=== PATIENT | female | born 1950 | race Caucasian/White ===

== ENCOUNTER 2021-05-11 09:41 | Inpatient (IN) ==
[2021-05-13] MEDS ORDERED: traZODone 50 MG TABLET PO PRN (13:51)
[2021-05-13] MEDS: Cholecalciferol (D-3) 1,000 UNIT (25MCG) TABLET PO SCH (23:23)
[2021-05-13] MEDS: Melatonin 3 MG TABLET PO SCH (23:23)
[2021-05-13] MEDS: Gabapentin 300 MG CAPSULE PO SCH (23:24)
[2021-05-13] MEDS: lisinopriL 10 MG TABLET PO SCH (23:24)
[2021-05-14 07:02] LABS: Basophils # 0.1 K/mcL (0.0-0.2); Basophils % 0.9 %; Eosinophils # 0.1 K/mcL (0.0-0.6); Eosinophils % 1.9 %; Hematocrit 44.5 % (35.3-44.9); Hemoglobin 14.3 g/dL (11.5-15.4); Immature Granulocytes % 1.4 % (0-4); Lymphocytes # 1.7 K/mcL (0.6-4.6); Lymphocytes % 29.8 %; Mean Corpuscular HGB Conc 32.1 g/dL (31.6-35.5); Mean Corpuscular Hemoglobin 31.1 pg (28.0-33.3); Mean Corpuscular Volume 96.7 fL (83.0-100.0); Mean Platelet Volume 9.9 fL (9.4-12.4); Monocytes # 0.6 K/mcL (0.0-1.3); Monocytes % 10.8 %; Neutrophils # 3.1 K/mcL (1.6-8.9); Platelet Count 373 K/mcL (140-400); Red Cell Distribution Width 16.3 % (11.5-14.5); Segmented Neutrophils % 55.2 %; White Blood Count 5.7 K/mcL (4.3-11.1)
[2021-05-14 07:24] LABS: BUN/Creatinine Ratio 21 (6-26); Blood Urea Nitrogen 14 mg/dL (8-23); Calcium 10.2 mg/dL (8.6-10.3); Carbon Dioxide 25 mEq/L (23-29); Chloride 101 mEq/L (98-107); Glucose 85 mg/dL (70-105); Osmolality,Calculated 282 (280-300); Potassium 4.2 mEq/L (3.5-5.1); Sodium 136 mEq/L (136-145); eGFR For African Americans > 60 (> 60); eGFR For Non-African Americans > 60 (> 60)
[2021-05-14] MEDS: VILANTEROL TR IH SCH (17:44)
[2021-05-14] MEDS: UMECLIDINIUM BRM IH SCH (17:44)
[2021-05-14] MEDS: lisinopriL 10 MG TABLET PO SCH (22:52)
[2021-05-14] MEDS: Gabapentin 300 MG CAPSULE PO SCH (22:52)
[2021-05-14] MEDS: Cholecalciferol (D-3) 1,000 UNIT (25MCG) TABLET PO SCH (22:52)
[2021-05-14] MEDS: Melatonin 3 MG TABLET PO SCH (22:52)
[2021-05-15 06:48] LABS: BUN/Creatinine Ratio 24 (6-26); Blood Urea Nitrogen 21 mg/dL (8-23); Calcium 10.5 mg/dL (8.6-10.3); Carbon Dioxide 30 mEq/L (23-29); Chloride 100 mEq/L (98-107); Glucose 90 mg/dL (70-105); Magnesium 2.3 mg/dL (1.6-2.6); Osmolality,Calculated 291 (280-300); Potassium 3.8 mEq/L (3.5-5.1); Sodium 139 mEq/L (136-145); eGFR For African Americans > 60 (> 60); eGFR For Non-African Americans > 60 (> 60)
[2021-05-15] MEDS: VILANTEROL TR IH SCH (11:23)
[2021-05-15] MEDS: UMECLIDINIUM BRM IH SCH (11:23)
[2021-05-15 12:52] LABS: Ferritin 53 ng/mL (10-120)
[2021-05-15 16:16] LABS: C-Reactive Protein < 5 mg/L (Less than 10)
[2021-05-15] MEDS: lisinopriL 10 MG TABLET PO SCH (19:52)
[2021-05-15] MEDS: Melatonin 3 MG TABLET PO SCH (19:52)
[2021-05-15] MEDS: Gabapentin 300 MG CAPSULE PO SCH (19:53)
[2021-05-15] MEDS: Cholecalciferol (D-3) 1,000 UNIT (25MCG) TABLET PO SCH (19:53)
[2021-05-16 01:38] LABS: Bilirubin,Urine Negative (Negative); Blood,Urine Moderate (Negative); Clarity,Urine Slightly Cloudy (Clear); Glucose,Urine (UA) Normal (Normal); Ketones,Urine Negative (Negative); Leukocyte Esterase,Urine Large (Negative); Nitrite,Urine Positive (Negative); PH,Urine 5.5 pH Units (5.0-8.0); Protein,Urine Negative (Neg-Trace); Specific Gravity,Urine >= 1.030 (1.010-1.025); Urobilinogen,Urine Normal (Normal)
[2021-05-16 02:05] LABS: Color,Urine Yellow (Yellow)
[2021-05-16 02:06] LABS: Bacteria,Urine Moderate per hpf (None-Few); Squamous Epithelial Cell,Urine Few per hpf (None-Few); WBC,Urine 15-30 per hpf (0-3)
[2021-05-16] MEDS: UMECLIDINIUM BRM IH SCH (09:54)
[2021-05-16] MEDS: VILANTEROL TR IH SCH (09:54)
[2021-05-16] MEDS: lisinopriL 10 MG TABLET PO SCH (20:00)
[2021-05-16] MEDS: Melatonin 3 MG TABLET PO SCH (20:00)
[2021-05-16] MEDS: Cholecalciferol (D-3) 1,000 UNIT (25MCG) TABLET PO SCH (20:00)
[2021-05-16] MEDS: Gabapentin 300 MG CAPSULE PO SCH (20:00)
[2021-05-17] MEDS: VILANTEROL TR IH SCH (11:34)
[2021-05-17] MEDS: UMECLIDINIUM BRM IH SCH (11:34)
[2021-05-17] MEDS: Melatonin 3 MG TABLET PO SCH (20:13)
[2021-05-17] MEDS: Cholecalciferol (D-3) 1,000 UNIT (25MCG) TABLET PO SCH (20:13)
[2021-05-17] MEDS: Cefdinir 300 MG CAPSULE PO SCH (20:13)
[2021-05-17] MEDS: Gabapentin 300 MG CAPSULE PO SCH (20:13)
[2021-05-17] MEDS: lisinopriL 10 MG TABLET PO SCH (20:13)
[2021-05-17] MEDS: Acetaminophen 325 MG TABLET PO PRN (21:43)
[2021-05-18] MEDS: Cefdinir 300 MG CAPSULE PO SCH ×2 (08:20→21:55)
[2021-05-18] MEDS: VILANTEROL TR IH SCH (08:22)
[2021-05-18] MEDS: UMECLIDINIUM BRM IH SCH (08:22)
[2021-05-18] MEDS: Acetaminophen 325 MG TABLET PO PRN (12:20)
[2021-05-18] MEDS: Cholecalciferol (D-3) 1,000 UNIT (25MCG) TABLET PO SCH (21:54)
[2021-05-18] MEDS: Melatonin 3 MG TABLET PO SCH (21:55)
[2021-05-18] MEDS: lisinopriL 10 MG TABLET PO SCH (21:55)
[2021-05-18] MEDS: Gabapentin 300 MG CAPSULE PO SCH (21:55)
[2021-05-19 04:54] LABS: Basophils % 0.3 %; Eosinophils # 0.3 K/mcL (0.0-0.6); Eosinophils % 3.3 %; Hematocrit 37.3 % (35.3-44.9); Immature Granulocytes % 0.5 % (0-4); Lymphocytes # 2.3 K/mcL (0.6-4.6); Lymphocytes % 29.7 %; Mean Corpuscular HGB Conc 32.4 g/dL (31.6-35.5); Mean Corpuscular Hemoglobin 31.7 pg (28.0-33.3); Mean Corpuscular Volume 97.6 fL (83.0-100.0); Mean Platelet Volume 9.5 fL (9.4-12.4); Monocytes # 0.5 K/mcL (0.0-1.3); Monocytes % 6.4 %; Neutrophils # 4.6 K/mcL (1.6-8.9); Platelet Count 371 K/mcL (140-400); Red Blood Count 3.82 M/mcL (3.82-4.97); Red Cell Distribution Width 15.7 % (11.5-14.5); Segmented Neutrophils % 59.8 %; White Blood Count 7.7 K/mcL (4.3-11.1)
[2021-05-19 04:59] LABS: Hemoglobin 12.1 g/dL (11.5-15.4)
[2021-05-19 05:07] LABS: BUN/Creatinine Ratio 38 (6-26); Blood Urea Nitrogen 29 mg/dL (8-23); Calcium 9.6 mg/dL (8.6-10.3); Carbon Dioxide 29 mEq/L (23-29); Chloride 100 mEq/L (98-107); Glucose 101 mg/dL (70-105); Osmolality,Calculated 290 (280-300); Potassium 4.1 mEq/L (3.5-5.1); Sodium 137 mEq/L (136-145); eGFR For African Americans > 60 (> 60); eGFR For Non-African Americans > 60 (> 60)
[2021-05-19] MEDS: Acetaminophen 325 MG TABLET PO PRN ×2 (09:57→18:44)
[2021-05-19] MEDS: Cefdinir 300 MG CAPSULE PO SCH ×2 (09:58→22:31)
[2021-05-19] MEDS: VILANTEROL TR IH SCH (09:59)
[2021-05-19] MEDS: UMECLIDINIUM BRM IH SCH (09:59)
[2021-05-19] MEDS: Melatonin 3 MG TABLET PO SCH (22:31)
[2021-05-19] MEDS: lisinopriL 10 MG TABLET PO SCH (22:32)
[2021-05-19] MEDS: Cholecalciferol (D-3) 1,000 UNIT (25MCG) TABLET PO SCH (22:32)
[2021-05-19] MEDS: Gabapentin 300 MG CAPSULE PO SCH (22:32)
[2021-05-20] MEDS: VILANTEROL TR IH SCH (09:22)
[2021-05-20] MEDS: Cefdinir 300 MG CAPSULE PO SCH ×2 (09:22→20:34)
[2021-05-20] MEDS: UMECLIDINIUM BRM IH SCH (09:22)
[2021-05-20] MEDS: Melatonin 3 MG TABLET PO SCH (20:32)
[2021-05-20] MEDS: Gabapentin 300 MG CAPSULE PO SCH (20:33)
[2021-05-20] MEDS: Cholecalciferol (D-3) 1,000 UNIT (25MCG) TABLET PO SCH (20:35)
[2021-05-20] MEDS: lisinopriL 10 MG TABLET PO SCH (21:34)
[2021-05-21] MEDS: Cefdinir 300 MG CAPSULE PO SCH ×2 (09:32→20:50)
[2021-05-21] MEDS: VILANTEROL TR IH SCH (09:33)
[2021-05-21] MEDS: UMECLIDINIUM BRM IH SCH (09:33)
[2021-05-21] MEDS: Acetaminophen 325 MG TABLET PO PRN (16:07)
[2021-05-21] MEDS ORDERED: Bisacodyl 10 MG RECTAL SUPPOSITORY RC PRN (18:20)
[2021-05-21] MEDS: Sennosides 8.6 MG TABLET PO SCH (20:50)
[2021-05-21] MEDS: lisinopriL 10 MG TABLET PO SCH (20:50)
[2021-05-21] MEDS: Gabapentin 300 MG CAPSULE PO SCH (20:50)
[2021-05-21] MEDS: Cholecalciferol (D-3) 1,000 UNIT (25MCG) TABLET PO SCH (20:50)
[2021-05-21] MEDS: Melatonin 3 MG TABLET PO SCH (20:50)
[2021-05-22] MEDS: UMECLIDINIUM BRM IH SCH (09:52)
[2021-05-22] MEDS: Sennosides 8.6 MG TABLET PO SCH ×2 (09:52→21:36)
[2021-05-22] MEDS: Cefdinir 300 MG CAPSULE PO SCH ×2 (09:52→21:36)
[2021-05-22] MEDS: polyethylene glycoL 3350 17 GM POWD.PACK PO SCH (09:52)
[2021-05-22] MEDS: VILANTEROL TR IH SCH (09:52)
[2021-05-22] MEDS: lisinopriL 10 MG TABLET PO SCH (21:36)
[2021-05-22] MEDS: Melatonin 3 MG TABLET PO SCH (21:36)
[2021-05-22] MEDS: Cholecalciferol (D-3) 1,000 UNIT (25MCG) TABLET PO SCH (21:36)
[2021-05-22] MEDS: Gabapentin 300 MG CAPSULE PO SCH (21:36)
[2021-05-23] MEDS: Sennosides 8.6 MG TABLET PO SCH ×2 (10:40→21:32)
[2021-05-23] MEDS: Cefdinir 300 MG CAPSULE PO SCH ×2 (10:40→21:32)
[2021-05-23] MEDS: VILANTEROL TR IH SCH (10:41)
[2021-05-23] MEDS: polyethylene glycoL 3350 17 GM POWD.PACK PO SCH (10:41)
[2021-05-23] MEDS: UMECLIDINIUM BRM IH SCH (10:41)
[2021-05-23] MEDS: Melatonin 3 MG TABLET PO SCH (21:30)
[2021-05-23] MEDS: Cholecalciferol (D-3) 1,000 UNIT (25MCG) TABLET PO SCH (21:31)
[2021-05-23] MEDS: Gabapentin 300 MG CAPSULE PO SCH (21:32)
[2021-05-23] MEDS: lisinopriL 10 MG TABLET PO SCH (21:32)
[2021-05-24] MEDS: Cefdinir 300 MG CAPSULE PO SCH ×2 (08:26→20:38)
[2021-05-24] MEDS: Sennosides 8.6 MG TABLET PO SCH ×2 (08:26→20:35)
[2021-05-24] MEDS: UMECLIDINIUM BRM IH SCH (08:27)
[2021-05-24] MEDS: VILANTEROL TR IH SCH (08:27)
[2021-05-24] MEDS: polyethylene glycoL 3350 17 GM POWD.PACK PO SCH (08:27)
[2021-05-24] MEDS: Melatonin 3 MG TABLET PO SCH (20:33)
[2021-05-24] MEDS: lisinopriL 10 MG TABLET PO SCH (20:38)
[2021-05-24] MEDS: Cholecalciferol (D-3) 1,000 UNIT (25MCG) TABLET PO SCH (20:38)
[2021-05-24] MEDS: Gabapentin 300 MG CAPSULE PO SCH (20:38)
[2021-05-25 04:52] LABS: Basophils % 0.5 %; Eosinophils # 0.2 K/mcL (0.0-0.6); Eosinophils % 2.6 %; Hematocrit 40.3 % (35.3-44.9); Hemoglobin 12.6 g/dL (11.5-15.4); Immature Granulocytes % 0.9 % (0-4); Lymphocytes # 1.7 K/mcL (0.6-4.6); Lymphocytes % 19.5 %; Mean Corpuscular HGB Conc 31.3 g/dL (31.6-35.5); Mean Corpuscular Hemoglobin 31.2 pg (28.0-33.3); Mean Corpuscular Volume 99.8 fL (83.0-100.0); Mean Platelet Volume 9.3 fL (9.4-12.4); Monocytes # 0.7 K/mcL (0.0-1.3); Platelet Count 422 K/mcL (140-400); Red Blood Count 4.04 M/mcL (3.82-4.97); Red Cell Distribution Width 15.5 % (11.5-14.5); Segmented Neutrophils % 68.5 %; White Blood Count 8.8 K/mcL (4.3-11.1)
[2021-05-25 05:07] LABS: BUN/Creatinine Ratio 29 (6-26); Blood Urea Nitrogen 30 mg/dL (8-23); Carbon Dioxide 31 mEq/L (23-29); Chloride 100 mEq/L (98-107); Glucose 106 mg/dL (70-105); Osmolality,Calculated 293 (280-300); Potassium 4.7 mEq/L (3.5-5.1); Sodium 138 mEq/L (136-145); eGFR For African Americans > 60 (> 60); eGFR For Non-African Americans 53 (> 60)
[2021-05-25] MEDS: Sennosides 8.6 MG TABLET PO SCH ×2 (08:53→20:28)
[2021-05-25] MEDS: polyethylene glycoL 3350 17 GM POWD.PACK PO SCH (08:53)
[2021-05-25] MEDS: UMECLIDINIUM BRM IH SCH (08:53)
[2021-05-25] MEDS: VILANTEROL TR IH SCH (08:53)
[2021-05-25] MEDS: Melatonin 3 MG TABLET PO SCH (20:27)
[2021-05-25] MEDS: Gabapentin 300 MG CAPSULE PO SCH (20:27)
[2021-05-25] MEDS: lisinopriL 10 MG TABLET PO SCH (20:29)
[2021-05-25] MEDS: Cholecalciferol (D-3) 1,000 UNIT (25MCG) TABLET PO SCH (20:30)
[2021-05-26] MEDS: Sennosides 8.6 MG TABLET PO SCH ×2 (09:09→20:47)
[2021-05-26] MEDS: UMECLIDINIUM BRM IH SCH (09:09)
[2021-05-26] MEDS: polyethylene glycoL 3350 17 GM POWD.PACK PO SCH (09:09)
[2021-05-26] MEDS: VILANTEROL TR IH SCH (09:09)
[2021-05-26] MEDS: Cholecalciferol (D-3) 1,000 UNIT (25MCG) TABLET PO SCH (20:47)
[2021-05-26] MEDS: Melatonin 3 MG TABLET PO SCH (20:48)
[2021-05-26] MEDS: Gabapentin 300 MG CAPSULE PO SCH (20:50)
[2021-05-26] MEDS: lisinopriL 10 MG TABLET PO SCH (20:50)
[2021-05-27] MEDS: VILANTEROL TR IH SCH (09:52)
[2021-05-27] MEDS: UMECLIDINIUM BRM IH SCH (09:52)
[2021-05-27] MEDS: polyethylene glycoL 3350 17 GM POWD.PACK PO SCH (09:55)
[2021-05-27] MEDS: Sennosides 8.6 MG TABLET PO SCH ×2 (09:55→21:29)
[2021-05-27] MEDS: Cholecalciferol (D-3) 1,000 UNIT (25MCG) TABLET PO SCH (21:29)
[2021-05-27] MEDS: Melatonin 3 MG TABLET PO SCH (21:29)
[2021-05-27] MEDS: Gabapentin 300 MG CAPSULE PO SCH (21:29)
[2021-05-27] MEDS: lisinopriL 10 MG TABLET PO SCH (21:29)
[2021-05-28] MEDS: polyethylene glycoL 3350 17 GM POWD.PACK PO SCH (09:58)
[2021-05-28] MEDS: Sennosides 8.6 MG TABLET PO SCH ×2 (09:58→20:33)
[2021-05-28] MEDS: UMECLIDINIUM BRM IH SCH (10:06)
[2021-05-28] MEDS: VILANTEROL TR IH SCH (10:06)
[2021-05-28] MEDS ORDERED: Mag Hydrox/Al Hydrox/Simeth 30 ML UDC PO PRN (13:43)
[2021-05-28] MEDS: Ipratropium/Albuterol Neb 3 ML IH PRN (17:09)
[2021-05-28] MEDS: Gabapentin 300 MG CAPSULE PO SCH (20:33)
[2021-05-28] MEDS: Melatonin 3 MG TABLET PO SCH (20:33)
[2021-05-28] MEDS: lisinopriL 10 MG TABLET PO SCH (20:33)
[2021-05-28] MEDS: Cholecalciferol (D-3) 1,000 UNIT (25MCG) TABLET PO SCH (20:33)
[2021-05-29] MEDS: Sennosides 8.6 MG TABLET PO SCH ×2 (10:18→20:53)
[2021-05-29] MEDS: VILANTEROL TR IH SCH (10:18)
[2021-05-29] MEDS: polyethylene glycoL 3350 17 GM POWD.PACK PO SCH (10:18)
[2021-05-29] MEDS: UMECLIDINIUM BRM IH SCH (10:18)
[2021-05-29] MEDS: Melatonin 3 MG TABLET PO SCH (20:51)
[2021-05-29] MEDS: Cholecalciferol (D-3) 1,000 UNIT (25MCG) TABLET PO SCH (20:52)
[2021-05-29] MEDS: lisinopriL 10 MG TABLET PO SCH (20:54)
[2021-05-29] MEDS: Gabapentin 300 MG CAPSULE PO SCH (20:55)
[2021-05-30] MEDS: Sennosides 8.6 MG TABLET PO SCH ×2 (09:13→20:20)
[2021-05-30] MEDS: VILANTEROL TR IH SCH (09:13)
[2021-05-30] MEDS: UMECLIDINIUM BRM IH SCH (09:13)
[2021-05-30] MEDS: polyethylene glycoL 3350 17 GM POWD.PACK PO SCH (09:13)
[2021-05-30] MEDS: Melatonin 3 MG TABLET PO SCH (20:18)
[2021-05-30] MEDS: lisinopriL 10 MG TABLET PO SCH (20:20)
[2021-05-30] MEDS: Cholecalciferol (D-3) 1,000 UNIT (25MCG) TABLET PO SCH (20:20)
[2021-05-30] MEDS: Gabapentin 300 MG CAPSULE PO SCH (20:23)
[2021-05-31] MEDS: Sennosides 8.6 MG TABLET PO SCH ×2 (08:39→22:01)
[2021-05-31] MEDS: polyethylene glycoL 3350 17 GM POWD.PACK PO SCH (08:39)
[2021-05-31] MEDS: UMECLIDINIUM BRM IH SCH (09:02)
[2021-05-31] MEDS: VILANTEROL TR IH SCH (09:02)
[2021-05-31] MEDS: lisinopriL 10 MG TABLET PO SCH (22:01)
[2021-05-31] MEDS: Cholecalciferol (D-3) 1,000 UNIT (25MCG) TABLET PO SCH (22:01)
[2021-05-31] MEDS: Melatonin 3 MG TABLET PO SCH (22:03)
[2021-05-31] MEDS: Gabapentin 300 MG CAPSULE PO SCH (22:06)
[2021-06-01] MEDS: VILANTEROL TR IH SCH (08:36)
[2021-06-01] MEDS: polyethylene glycoL 3350 17 GM POWD.PACK PO SCH (08:36)
[2021-06-01] MEDS: Sennosides 8.6 MG TABLET PO SCH (08:36)
[2021-06-01] MEDS: UMECLIDINIUM BRM IH SCH (08:36)
[2021-06-01] MEDS: Cholecalciferol (D-3) 1,000 UNIT (25MCG) TABLET PO SCH (20:10)
[2021-06-01] MEDS: lisinopriL 10 MG TABLET PO SCH (20:10)
[2021-06-01] MEDS: Melatonin 3 MG TABLET PO SCH (20:11)
[2021-06-01] MEDS: Gabapentin 300 MG CAPSULE PO SCH (20:12)
[2021-06-02] MEDS: Sennosides 8.6 MG TABLET PO SCH ×3 (01:13→21:36)
[2021-06-02] MEDS: UMECLIDINIUM BRM IH SCH (08:00)
[2021-06-02] MEDS: VILANTEROL TR IH SCH (08:00)
[2021-06-02] MEDS: polyethylene glycoL 3350 17 GM POWD.PACK PO SCH (08:00)
[2021-06-02] MEDS: Cholecalciferol (D-3) 1,000 UNIT (25MCG) TABLET PO SCH (21:36)
[2021-06-02] MEDS: Gabapentin 300 MG CAPSULE PO SCH (21:36)
[2021-06-02] MEDS: Melatonin 3 MG TABLET PO SCH (21:36)
[2021-06-02] MEDS: lisinopriL 10 MG TABLET PO SCH (21:37)
[2021-06-03] MEDS: VILANTEROL TR IH SCH (08:38)
[2021-06-03] MEDS: UMECLIDINIUM BRM IH SCH (08:38)
[2021-06-03] MEDS: polyethylene glycoL 3350 17 GM POWD.PACK PO SCH (08:38)
[2021-06-03] MEDS: Sennosides 8.6 MG TABLET PO SCH ×2 (08:39→21:22)
[2021-06-03] MEDS: Gabapentin 300 MG CAPSULE PO SCH (21:22)
[2021-06-03] MEDS: Melatonin 3 MG TABLET PO SCH (21:23)
[2021-06-03] MEDS: Cholecalciferol (D-3) 1,000 UNIT (25MCG) TABLET PO SCH (21:23)
[2021-06-03] MEDS: lisinopriL 10 MG TABLET PO SCH (21:23)
[2021-06-04 06:03] LABS: Basophils % 0.5 %; Eosinophils # 0.2 K/mcL (0.0-0.6); Eosinophils % 2.3 %; Hematocrit 45.3 % (35.3-44.9); Hemoglobin 14.3 g/dL (11.5-15.4); Immature Granulocytes % 0.6 % (0-4); Lymphocytes # 1.9 K/mcL (0.6-4.6); Mean Corpuscular HGB Conc 31.6 g/dL (31.6-35.5); Mean Corpuscular Volume 98.1 fL (83.0-100.0); Mean Platelet Volume 9.5 fL (9.4-12.4); Monocytes # 0.5 K/mcL (0.0-1.3); Monocytes % 7.8 %; Platelet Count 410 K/mcL (140-400); Red Blood Count 4.62 M/mcL (3.82-4.97); Red Cell Distribution Width 14.4 % (11.5-14.5); Segmented Neutrophils % 59.8 %; White Blood Count 6.7 K/mcL (4.3-11.1)
[2021-06-04 06:38] LABS: Alanine Aminotransferase 9 Units/L (7-52); Albumin 3.7 g/dL (3.5-5.7); Albumin/Globulin Ratio 1.4 (1.1-2.2); Alkaline Phosphatase 69 Units/L (34-104); Aspartate Amino Transferase 10 Units/L (13-39); BUN/Creatinine Ratio 22 (6-26); Bilirubin,Total 0.5 mg/dL (0.3-1.0); Blood Urea Nitrogen 21 mg/dL (8-23); Calcium 9.9 mg/dL (8.6-10.3); Carbon Dioxide 33 mEq/L (23-29); Chloride 101 mEq/L (98-107); Globulin 2.6 g/dL (2.4-3.5); Glucose 94 mg/dL (70-105); Osmolality,Calculated 295 (280-300); Sodium 141 mEq/L (136-145); Total Protein 6.3 g/dL (6.4-8.9); eGFR For African Americans > 60 (> 60); eGFR For Non-African Americans 58 (> 60)
[2021-06-04] MEDS: VILANTEROL TR IH SCH (08:03)
[2021-06-04] MEDS: polyethylene glycoL 3350 17 GM POWD.PACK PO SCH (08:03)
[2021-06-04] MEDS: UMECLIDINIUM BRM IH SCH (08:03)
[2021-06-04] MEDS: Sennosides 8.6 MG TABLET PO SCH ×2 (08:03→21:40)
[2021-06-04] MEDS: lisinopriL 10 MG TABLET PO SCH (21:40)
[2021-06-04] MEDS: Melatonin 3 MG TABLET PO SCH (21:40)
[2021-06-04] MEDS: Cholecalciferol (D-3) 1,000 UNIT (25MCG) TABLET PO SCH (21:40)
[2021-06-04] MEDS: Gabapentin 300 MG CAPSULE PO SCH (21:40)
[2021-06-05] MEDS: polyethylene glycoL 3350 17 GM POWD.PACK PO SCH (08:37)
[2021-06-05] MEDS: Sennosides 8.6 MG TABLET PO SCH ×2 (08:37→20:43)
[2021-06-05] MEDS: VILANTEROL TR IH SCH (08:37)
[2021-06-05] MEDS: UMECLIDINIUM BRM IH SCH (08:37)
[2021-06-05] MEDS: Melatonin 3 MG TABLET PO SCH (20:42)
[2021-06-05] MEDS: Acetaminophen 325 MG TABLET PO PRN (20:42)
[2021-06-05] MEDS: Cholecalciferol (D-3) 1,000 UNIT (25MCG) TABLET PO SCH (20:43)
[2021-06-05] MEDS: Gabapentin 300 MG CAPSULE PO SCH (20:43)
[2021-06-05] MEDS: lisinopriL 10 MG TABLET PO SCH (20:43)
[2021-06-06] MEDS: UMECLIDINIUM BRM IH SCH (08:42)
[2021-06-06] MEDS: VILANTEROL TR IH SCH (08:42)
[2021-06-06] MEDS: Sennosides 8.6 MG TABLET PO SCH ×2 (08:43→20:58)
[2021-06-06] MEDS: polyethylene glycoL 3350 17 GM POWD.PACK PO SCH (08:43)
[2021-06-06] MEDS: Acetaminophen 325 MG TABLET PO PRN ×2 (13:58→20:58)
[2021-06-06] MEDS: Gabapentin 300 MG CAPSULE PO SCH (20:57)
[2021-06-06] MEDS: lisinopriL 10 MG TABLET PO SCH (20:57)
[2021-06-06] MEDS: Cholecalciferol (D-3) 1,000 UNIT (25MCG) TABLET PO SCH (20:57)
[2021-06-06] MEDS: Melatonin 3 MG TABLET PO SCH (20:58)
[2021-06-07] MEDS: Sennosides 8.6 MG TABLET PO SCH ×2 (07:55→20:43)
[2021-06-07] MEDS: UMECLIDINIUM BRM IH SCH (07:56)
[2021-06-07] MEDS: VILANTEROL TR IH SCH (07:56)
[2021-06-07] MEDS: polyethylene glycoL 3350 17 GM POWD.PACK PO SCH (07:56)
[2021-06-07] MEDS: Cholecalciferol (D-3) 1,000 UNIT (25MCG) TABLET PO SCH (20:43)
[2021-06-07] MEDS: Melatonin 3 MG TABLET PO SCH (20:43)
[2021-06-07] MEDS: Gabapentin 300 MG CAPSULE PO SCH (20:43)
[2021-06-07] MEDS: Acetaminophen 325 MG TABLET PO PRN (20:43)
[2021-06-07] MEDS: lisinopriL 10 MG TABLET PO SCH (20:43)
[2021-06-08] MEDS: polyethylene glycoL 3350 17 GM POWD.PACK PO SCH (08:48)
[2021-06-08] MEDS: Sennosides 8.6 MG TABLET PO SCH ×2 (08:49→20:30)
[2021-06-08] MEDS: VILANTEROL TR IH SCH (08:49)
[2021-06-08] MEDS: UMECLIDINIUM BRM IH SCH (08:49)
[2021-06-08] MEDS: Ipratropium/Albuterol Neb 3 ML IH PRN (14:41)
[2021-06-08] MEDS: Melatonin 3 MG TABLET PO SCH (20:28)
[2021-06-08] MEDS: Cholecalciferol (D-3) 1,000 UNIT (25MCG) TABLET PO SCH (20:29)
[2021-06-08] MEDS: lisinopriL 10 MG TABLET PO SCH (20:29)
[2021-06-08] MEDS: Gabapentin 300 MG CAPSULE PO SCH (20:30)
[2021-06-09] MEDS: polyethylene glycoL 3350 17 GM POWD.PACK PO SCH (08:46)
[2021-06-09] MEDS: Sennosides 8.6 MG TABLET PO SCH ×2 (08:46→22:18)
[2021-06-09] MEDS: VILANTEROL TR IH SCH (08:47)
[2021-06-09] MEDS: UMECLIDINIUM BRM IH SCH (08:47)
[2021-06-09] MEDS: lisinopriL 10 MG TABLET PO SCH (22:17)
[2021-06-09] MEDS: Melatonin 3 MG TABLET PO SCH (22:19)
[2021-06-09] MEDS: Cholecalciferol (D-3) 1,000 UNIT (25MCG) TABLET PO SCH (22:19)
[2021-06-10 05:08] LABS: Basophils % 0.3 %; Eosinophils # 0.2 K/mcL (0.0-0.6); Eosinophils % 2.1 %; Hematocrit 42.1 % (35.3-44.9); Hemoglobin 13.4 g/dL (11.5-15.4); Immature Granulocytes % 0.7 % (0-4); Lymphocytes # 2.2 K/mcL (0.6-4.6); Mean Corpuscular HGB Conc 31.8 g/dL (31.6-35.5); Mean Corpuscular Hemoglobin 31.4 pg (28.0-33.3); Mean Corpuscular Volume 98.6 fL (83.0-100.0); Mean Platelet Volume 9.7 fL (9.4-12.4); Monocytes # 0.6 K/mcL (0.0-1.3); Monocytes % 7.4 %; Neutrophils # 5.5 K/mcL (1.6-8.9); Platelet Count 375 K/mcL (140-400); Red Blood Count 4.27 M/mcL (3.82-4.97); Red Cell Distribution Width 14.6 % (11.5-14.5); Segmented Neutrophils % 63.5 %; White Blood Count 8.6 K/mcL (4.3-11.1)
[2021-06-10 05:25] LABS: Alanine Aminotransferase 10 Units/L (7-52); Albumin 3.5 g/dL (3.5-5.7); Albumin/Globulin Ratio 1.3 (1.1-2.2); Alkaline Phosphatase 62 Units/L (34-104); Aspartate Amino Transferase 13 Units/L (13-39); BUN/Creatinine Ratio 31 (6-26); Bilirubin,Total 0.4 mg/dL (0.3-1.0); Blood Urea Nitrogen 27 mg/dL (8-23); Calcium 9.6 mg/dL (8.6-10.3); Carbon Dioxide 30 mEq/L (23-29); Chloride 101 mEq/L (98-107); Globulin 2.6 g/dL (2.4-3.5); Glucose 96 mg/dL (70-105); Osmolality,Calculated 293 (280-300); Potassium 4.2 mEq/L (3.5-5.1); Sodium 139 mEq/L (136-145); Total Protein 6.1 g/dL (6.4-8.9); eGFR For African Americans > 60 (> 60); eGFR For Non-African Americans > 60 (> 60)
[2021-06-10 05:38] LABS: Thyroid Stimulating Hormone 1.559 mcIU/mL (0.340-5.600)
[2021-06-10 08:38] LABS: Vitamin B12 307 pg/mL (250-1100)
[2021-06-10] MEDS: polyethylene glycoL 3350 17 GM POWD.PACK PO SCH (09:25)
[2021-06-10] MEDS: Sennosides 8.6 MG TABLET PO SCH ×2 (09:25→21:31)
[2021-06-10] MEDS: UMECLIDINIUM BRM IH SCH (09:26)
[2021-06-10] MEDS: VILANTEROL TR IH SCH (09:26)
[2021-06-10 09:55] LABS: Vitamin D 25 Hydroxy 43 ng/mL (30-80)
[2021-06-10] MEDS: lisinopriL 10 MG TABLET PO SCH (21:31)
[2021-06-10] MEDS: Cholecalciferol (D-3) 1,000 UNIT (25MCG) TABLET PO SCH (21:31)
[2021-06-10] MEDS: Melatonin 3 MG TABLET PO SCH (21:32)
[2021-06-11] MEDS: VILANTEROL TR IH SCH (08:17)
[2021-06-11] MEDS: UMECLIDINIUM BRM IH SCH (08:17)
[2021-06-11] MEDS: Sennosides 8.6 MG TABLET PO SCH ×2 (08:28→22:21)
[2021-06-11] MEDS: polyethylene glycoL 3350 17 GM POWD.PACK PO SCH (08:29)
[2021-06-11] MEDS: Acetaminophen 325 MG TABLET PO PRN (22:21)
[2021-06-11] MEDS: lisinopriL 10 MG TABLET PO SCH (22:21)
[2021-06-11] MEDS: Cholecalciferol (D-3) 1,000 UNIT (25MCG) TABLET PO SCH (22:21)
[2021-06-11] MEDS: Melatonin 3 MG TABLET PO SCH (22:21)
[2021-06-12] MEDS: Sennosides 8.6 MG TABLET PO SCH ×2 (07:59→20:08)
[2021-06-12] MEDS: polyethylene glycoL 3350 17 GM POWD.PACK PO SCH (07:59)
[2021-06-12] MEDS: VILANTEROL TR IH SCH (11:26)
[2021-06-12] MEDS: UMECLIDINIUM BRM IH SCH (11:26)
[2021-06-12] MEDS: lisinopriL 10 MG TABLET PO SCH (20:07)
[2021-06-12] MEDS: Cholecalciferol (D-3) 1,000 UNIT (25MCG) TABLET PO SCH (20:08)
[2021-06-12] MEDS: Acetaminophen 325 MG TABLET PO PRN (20:08)
[2021-06-12] MEDS: Melatonin 3 MG TABLET PO SCH (20:08)
[2021-06-13] MEDS: polyethylene glycoL 3350 17 GM POWD.PACK PO SCH (08:23)
[2021-06-13] MEDS: Sennosides 8.6 MG TABLET PO SCH ×2 (08:25→22:40)
[2021-06-13] MEDS: VILANTEROL TR IH SCH (09:08)
[2021-06-13] MEDS: UMECLIDINIUM BRM IH SCH (09:08)
[2021-06-13] MEDS: Acetaminophen 325 MG TABLET PO PRN (22:40)
[2021-06-13] MEDS: Cholecalciferol (D-3) 1,000 UNIT (25MCG) TABLET PO SCH (22:40)
[2021-06-13] MEDS: Melatonin 3 MG TABLET PO SCH (22:40)
[2021-06-13] MEDS: lisinopriL 10 MG TABLET PO SCH (22:40)
[2021-06-14] MEDS: polyethylene glycoL 3350 17 GM POWD.PACK PO SCH (08:55)
[2021-06-14] MEDS: UMECLIDINIUM BRM IH SCH (08:55)
[2021-06-14] MEDS: Sennosides 8.6 MG TABLET PO SCH ×2 (08:55→21:01)
[2021-06-14] MEDS: VILANTEROL TR IH SCH (08:55)
[2021-06-14] MEDS: Acetaminophen 325 MG TABLET PO PRN (21:00)
[2021-06-14] MEDS: lisinopriL 10 MG TABLET PO SCH (21:01)
[2021-06-14] MEDS: Melatonin 3 MG TABLET PO SCH (21:01)
[2021-06-14] MEDS: Cholecalciferol (D-3) 1,000 UNIT (25MCG) TABLET PO SCH (21:01)
[2021-06-15] MEDS: VILANTEROL TR IH SCH (09:32)
[2021-06-15] MEDS: UMECLIDINIUM BRM IH SCH (09:32)
[2021-06-15] MEDS: polyethylene glycoL 3350 17 GM POWD.PACK PO SCH (09:32)
[2021-06-15] MEDS: Sennosides 8.6 MG TABLET PO SCH ×2 (09:33→21:26)
[2021-06-15] MEDS: Melatonin 3 MG TABLET PO SCH (21:22)
[2021-06-15] MEDS: Cholecalciferol (D-3) 1,000 UNIT (25MCG) TABLET PO SCH (21:24)
[2021-06-15] MEDS: lisinopriL 10 MG TABLET PO SCH (21:25)
[2021-06-16 06:48] LABS: Hematocrit 42.9 % (35.3-44.9); Hemoglobin 13.4 g/dL (11.5-15.4); Mean Corpuscular HGB Conc 31.2 g/dL (31.6-35.5); Mean Corpuscular Hemoglobin 30.5 pg (28.0-33.3); Mean Corpuscular Volume 97.5 fL (83.0-100.0); Mean Platelet Volume 9.9 fL (9.4-12.4); Platelet Count 396 K/mcL (140-400); Red Cell Distribution Width 13.7 % (11.5-14.5)
[2021-06-16 07:16] LABS: Alanine Aminotransferase 11 Units/L (7-52); Albumin 3.8 g/dL (3.5-5.7); Albumin/Globulin Ratio 1.6 (1.1-2.2); Alkaline Phosphatase 63 Units/L (34-104); Aspartate Amino Transferase 12 Units/L (13-39); BUN/Creatinine Ratio 28 (6-26); Bilirubin,Total 0.5 mg/dL (0.3-1.0); Blood Urea Nitrogen 26 mg/dL (8-23); Calcium 9.5 mg/dL (8.6-10.3); Carbon Dioxide 31 mEq/L (23-29); Chloride 102 mEq/L (98-107); Globulin 2.4 g/dL (2.4-3.5); Glucose 96 mg/dL (70-105); Magnesium 2.1 mg/dL (1.6-2.6); Osmolality,Calculated 295 (280-300); Sodium 140 mEq/L (136-145); Total Protein 6.2 g/dL (6.4-8.9); eGFR For African Americans > 60 (> 60); eGFR For Non-African Americans 59 (> 60)
[2021-06-16] MEDS: VILANTEROL TR IH SCH (09:36)
[2021-06-16] MEDS: Sennosides 8.6 MG TABLET PO SCH ×2 (09:36→20:34)
[2021-06-16] MEDS: polyethylene glycoL 3350 17 GM POWD.PACK PO SCH (09:36)
[2021-06-16] MEDS: UMECLIDINIUM BRM IH SCH (09:36)
[2021-06-16] MEDS: Cholecalciferol (D-3) 1,000 UNIT (25MCG) TABLET PO SCH (20:35)
[2021-06-16] MEDS: Melatonin 3 MG TABLET PO SCH (20:37)
[2021-06-16] MEDS: lisinopriL 10 MG TABLET PO SCH (20:38)
[2021-06-17] MEDS: UMECLIDINIUM BRM IH SCH (09:07)
[2021-06-17] MEDS: VILANTEROL TR IH SCH (09:07)
[2021-06-17] MEDS: Sennosides 8.6 MG TABLET PO SCH ×2 (09:14→20:46)
[2021-06-17] MEDS: polyethylene glycoL 3350 17 GM POWD.PACK PO SCH (09:14)
[2021-06-17] MEDS: Cholecalciferol (D-3) 1,000 UNIT (25MCG) TABLET PO SCH (20:53)
[2021-06-17] MEDS: lisinopriL 10 MG TABLET PO SCH (20:53)
[2021-06-17] MEDS: Melatonin 3 MG TABLET PO SCH (20:54)
[2021-06-18 07:40] VITALS: BP 124/80; PULSE 82; RESP 16; TEMP 97.6
[2021-06-18 08:49] VITALS: O2SAT 93
[2021-06-18] MEDS: VILANTEROL TR IH SCH (08:49)
[2021-06-18] MEDS: UMECLIDINIUM BRM IH SCH (08:49)
[2021-06-18] MEDS: polyethylene glycoL 3350 17 GM POWD.PACK PO SCH (08:55)
[2021-06-18] MEDS: Sennosides 8.6 MG TABLET PO SCH (08:55)
== END 2021-06-18 15:31 | DRG 56 ==
LOC: INPGRE 05-13 14:10
PROVIDERS: ADMIT Family Medicine; ATTEND Family Medicine

== ENCOUNTER 2021-06-25 14:57 | Inpatient (IN) ==
[2021-06-25] MEDS ORDERED: polyethylene glycoL 3350 17 GM POWD.PACK PO PRN (20:45)
[2021-06-25] MEDS ORDERED: Ipratropium/Albuterol Neb 3 ML IH PRN (22:00)
[2021-06-25] MEDS: GLYCOPYR IH SCH (22:02)
[2021-06-25] MEDS: FORMOTEROL IH SCH (22:02)
[2021-06-25] MEDS: BUDESONIDE IH SCH (22:02)
[2021-06-25] MEDS: Acetaminophen 325 MG TABLET PO PRN (22:11)
[2021-06-25] MEDS: Melatonin 3 MG TABLET PO SCH (22:12)
[2021-06-25] MEDS: Cholecalciferol (D-3) 1,000 UNIT (25MCG) TABLET PO SCH (22:12)
[2021-06-25] MEDS: lisinopriL 10 MG TABLET PO SCH (22:12)
[2021-06-26 05:54] LABS: Basophils % 0.2 %; Eosinophils # 0.1 K/mcL (0.0-0.6); Hematocrit 37.7 % (35.3-44.9); Hemoglobin 12.3 g/dL (11.5-15.4); Immature Granulocytes % 0.4 % (0-4); Lymphocytes # 1.7 K/mcL (0.6-4.6); Lymphocytes % 16.6 %; Mean Corpuscular HGB Conc 32.6 g/dL (31.6-35.5); Mean Corpuscular Hemoglobin 30.8 pg (28.0-33.3); Mean Corpuscular Volume 94.5 fL (83.0-100.0); Mean Platelet Volume 9.3 fL (9.4-12.4); Monocytes # 0.8 K/mcL (0.0-1.3); Monocytes % 7.5 %; Neutrophils # 7.5 K/mcL (1.6-8.9); Platelet Count 382 K/mcL (140-400); Red Blood Count 3.99 M/mcL (3.82-4.97); Red Cell Distribution Width 13.5 % (11.5-14.5); Segmented Neutrophils % 74.3 %; White Blood Count 10.1 K/mcL (4.3-11.1)
[2021-06-26 06:12] LABS: BUN/Creatinine Ratio 15 (6-26); Blood Urea Nitrogen 9 mg/dL (8-23); Carbon Dioxide 31 mEq/L (23-29); Chloride 102 mEq/L (98-107); Glucose 101 mg/dL (70-105); Osmolality,Calculated 283 (280-300); Potassium 3.9 mEq/L (3.5-5.1); Sodium 137 mEq/L (136-145); eGFR For African Americans > 60 (> 60); eGFR For Non-African Americans > 60 (> 60)
[2021-06-26] MEDS ORDERED: Patient Taking Own Medication 1 EACH IH SCH (09:00)
[2021-06-26] MEDS: GLYCOPYR IH SCH ×2 (09:04→20:21)
[2021-06-26] MEDS: BUDESONIDE IH SCH ×2 (09:04→20:21)
[2021-06-26] MEDS: FORMOTEROL IH SCH ×2 (09:04→20:21)
[2021-06-26] MEDS: Acetaminophen 325 MG TABLET PO PRN (17:52)
[2021-06-26] MEDS: lisinopriL 10 MG TABLET PO SCH (20:20)
[2021-06-26] MEDS: Cholecalciferol (D-3) 1,000 UNIT (25MCG) TABLET PO SCH (20:20)
[2021-06-26] MEDS: Melatonin 3 MG TABLET PO SCH (20:20)
[2021-06-27] MEDS: GLYCOPYR IH SCH ×2 (08:42→21:00)
[2021-06-27] MEDS: BUDESONIDE IH SCH ×2 (08:42→21:00)
[2021-06-27] MEDS: FORMOTEROL IH SCH ×2 (08:42→21:00)
[2021-06-27] MEDS: lisinopriL 10 MG TABLET PO SCH (19:26)
[2021-06-27] MEDS: Cholecalciferol (D-3) 1,000 UNIT (25MCG) TABLET PO SCH (19:26)
[2021-06-27] MEDS: Melatonin 3 MG TABLET PO SCH (19:26)
[2021-06-28] MEDS: Acetaminophen 325 MG TABLET PO PRN (00:14)
[2021-06-28] MEDS: FORMOTEROL IH SCH ×2 (09:42→20:01)
[2021-06-28] MEDS: GLYCOPYR IH SCH ×2 (09:42→20:01)
[2021-06-28] MEDS: BUDESONIDE IH SCH ×2 (09:42→20:01)
[2021-06-28] MEDS ORDERED: hydrALAZINE 10 MG TABLET PO PRN (10:05)
[2021-06-28] MEDS: Cholecalciferol (D-3) 1,000 UNIT (25MCG) TABLET PO SCH (20:00)
[2021-06-28] MEDS: Melatonin 3 MG TABLET PO SCH (20:00)
[2021-06-28] MEDS: *HR* HYDROcodone/Acet 5/325 mg TABLET PO PRN (20:01)
[2021-06-28] MEDS: lisinopriL 10 MG TABLET PO SCH (20:03)
[2021-06-29] MEDS: Acetaminophen 325 MG TABLET PO PRN (08:03)
[2021-06-29] MEDS: BUDESONIDE IH SCH ×2 (08:04→23:33)
[2021-06-29] MEDS: FORMOTEROL IH SCH ×2 (08:04→23:33)
[2021-06-29] MEDS: GLYCOPYR IH SCH ×2 (08:04→23:33)
[2021-06-29] MEDS: *HR* HYDROcodone/Acet 5/325 mg TABLET PO PRN (23:33)
[2021-06-29] MEDS: Melatonin 3 MG TABLET PO SCH (23:33)
[2021-06-29] MEDS: Cholecalciferol (D-3) 1,000 UNIT (25MCG) TABLET PO SCH (23:33)
[2021-06-29] MEDS: lisinopriL 10 MG TABLET PO SCH (23:33)
[2021-06-30] MEDS: BUDESONIDE IH SCH ×2 (11:46→20:48)
[2021-06-30] MEDS: GLYCOPYR IH SCH ×2 (11:46→20:48)
[2021-06-30] MEDS: FORMOTEROL IH SCH ×2 (11:46→20:48)
[2021-06-30] MEDS: lisinopriL 10 MG TABLET PO SCH (20:46)
[2021-06-30] MEDS: Melatonin 3 MG TABLET PO SCH (20:46)
[2021-06-30] MEDS: Cholecalciferol (D-3) 1,000 UNIT (25MCG) TABLET PO SCH (20:47)
[2021-07-01 06:13] LABS: Hematocrit 36.8 % (35.3-44.9); Hemoglobin 11.8 g/dL (11.5-15.4); Mean Corpuscular HGB Conc 32.1 g/dL (31.6-35.5); Mean Corpuscular Hemoglobin 30.5 pg (28.0-33.3); Mean Corpuscular Volume 95.1 fL (83.0-100.0); Mean Platelet Volume 8.7 fL (9.4-12.4); Platelet Count 500 K/mcL (140-400); Red Blood Count 3.87 M/mcL (3.82-4.97); Red Cell Distribution Width 13.7 % (11.5-14.5); White Blood Count 8.2 K/mcL (4.3-11.1)
[2021-07-01 06:32] LABS: Alanine Aminotransferase 7 Units/L (7-52); Albumin 3.3 g/dL (3.5-5.7); Albumin/Globulin Ratio 1.4 (1.1-2.2); Alkaline Phosphatase 65 Units/L (34-104); Aspartate Amino Transferase 6 Units/L (13-39); BUN/Creatinine Ratio 18 (6-26); Bilirubin,Total 0.4 mg/dL (0.3-1.0); Blood Urea Nitrogen 14 mg/dL (8-23); Calcium 9.1 mg/dL (8.6-10.3); Carbon Dioxide 30 mEq/L (23-29); Chloride 100 mEq/L (98-107); Globulin 2.3 g/dL (2.4-3.5); Glucose 94 mg/dL (70-105); Magnesium 1.8 mg/dL (1.6-2.6); Osmolality,Calculated 280 (280-300); Potassium 4.1 mEq/L (3.5-5.1); Sodium 135 mEq/L (136-145); Total Protein 5.6 g/dL (6.4-8.9); eGFR For African Americans > 60 (> 60); eGFR For Non-African Americans > 60 (> 60)
[2021-07-01] MEDS: BUDESONIDE IH SCH ×2 (09:18→21:41)
[2021-07-01] MEDS: FORMOTEROL IH SCH ×2 (09:18→21:41)
[2021-07-01] MEDS: GLYCOPYR IH SCH ×2 (09:18→21:41)
[2021-07-01] MEDS: lisinopriL 10 MG TABLET PO SCH (21:40)
[2021-07-01] MEDS: *HR* HYDROcodone/Acet 5/325 mg TABLET PO PRN (21:41)
[2021-07-01] MEDS: Cholecalciferol (D-3) 1,000 UNIT (25MCG) TABLET PO SCH (21:41)
[2021-07-01] MEDS: Melatonin 3 MG TABLET PO SCH (21:41)
[2021-07-02] MEDS: FORMOTEROL IH SCH ×2 (11:55→21:35)
[2021-07-02] MEDS: GLYCOPYR IH SCH ×2 (11:55→21:35)
[2021-07-02] MEDS: BUDESONIDE IH SCH ×2 (11:55→21:35)
[2021-07-02] MEDS: Cholecalciferol (D-3) 1,000 UNIT (25MCG) TABLET PO SCH (20:32)
[2021-07-02] MEDS: Melatonin 3 MG TABLET PO SCH (20:32)
[2021-07-02] MEDS: lisinopriL 10 MG TABLET PO SCH (20:33)
[2021-07-03] MEDS: amLODIPine 5 MG TABLET PO SCH (09:02)
[2021-07-03] MEDS: GLYCOPYR IH SCH ×2 (09:05→20:29)
[2021-07-03] MEDS: FORMOTEROL IH SCH ×2 (09:05→20:29)
[2021-07-03] MEDS: BUDESONIDE IH SCH ×2 (09:05→20:29)
[2021-07-03] MEDS: Acetaminophen 325 MG TABLET PO PRN (18:23)
[2021-07-03] MEDS: Melatonin 3 MG TABLET PO SCH (20:29)
[2021-07-03] MEDS: Cholecalciferol (D-3) 1,000 UNIT (25MCG) TABLET PO SCH (20:29)
[2021-07-03] MEDS: lisinopriL 10 MG TABLET PO SCH (20:29)
[2021-07-03] MEDS: *HR* HYDROcodone/Acet 5/325 mg TABLET PO PRN (20:30)
[2021-07-04] MEDS: GLYCOPYR IH SCH ×2 (08:15→19:56)
[2021-07-04] MEDS: FORMOTEROL IH SCH ×2 (08:15→19:56)
[2021-07-04] MEDS: amLODIPine 5 MG TABLET PO SCH (08:15)
[2021-07-04] MEDS: BUDESONIDE IH SCH ×2 (08:15→19:56)
[2021-07-04] MEDS: *HR* HYDROcodone/Acet 5/325 mg TABLET PO PRN (13:17)
[2021-07-04] MEDS: Cholecalciferol (D-3) 1,000 UNIT (25MCG) TABLET PO SCH (19:56)
[2021-07-04] MEDS: lisinopriL 10 MG TABLET PO SCH (19:56)
[2021-07-04] MEDS: Melatonin 3 MG TABLET PO SCH (19:56)
[2021-07-05] MEDS: amLODIPine 5 MG TABLET PO SCH (08:21)
[2021-07-05] MEDS: BUDESONIDE IH SCH ×2 (08:23→20:06)
[2021-07-05] MEDS: GLYCOPYR IH SCH ×2 (08:23→20:06)
[2021-07-05] MEDS: FORMOTEROL IH SCH ×2 (08:23→20:06)
[2021-07-05] MEDS: Acetaminophen 325 MG TABLET PO PRN (14:52)
[2021-07-05] MEDS: *HR* HYDROcodone/Acet 5/325 mg TABLET PO PRN (17:18)
[2021-07-05] MEDS: Cholecalciferol (D-3) 1,000 UNIT (25MCG) TABLET PO SCH (20:04)
[2021-07-05] MEDS: Melatonin 3 MG TABLET PO SCH (20:04)
[2021-07-05] MEDS: lisinopriL 10 MG TABLET PO SCH (20:05)
[2021-07-06] MEDS: amLODIPine 5 MG TABLET PO SCH (08:45)
[2021-07-06] MEDS: GLYCOPYR IH SCH ×2 (08:46→19:39)
[2021-07-06] MEDS: FORMOTEROL IH SCH ×2 (08:46→19:39)
[2021-07-06] MEDS: BUDESONIDE IH SCH ×2 (08:46→19:39)
[2021-07-06] MEDS ORDERED: Bisacodyl 10 MG RECTAL SUPPOSITORY RC PRN (12:37)
[2021-07-06] MEDS ORDERED: MOM Conc 10 ML UD.LIQ PO PRN (12:49)
[2021-07-06] MEDS: Sennosides 8.6 MG TABLET PO SCH ×2 (14:46→19:38)
[2021-07-06] MEDS: polyethylene glycoL 3350 17 GM POWD.PACK PO SCH (14:46)
[2021-07-06] MEDS: Cholecalciferol (D-3) 1,000 UNIT (25MCG) TABLET PO SCH (19:38)
[2021-07-06] MEDS: Melatonin 3 MG TABLET PO SCH (19:38)
[2021-07-06] MEDS: lisinopriL 10 MG TABLET PO SCH (19:38)
[2021-07-07] MEDS: Sennosides 8.6 MG TABLET PO SCH ×2 (07:41→20:46)
[2021-07-07] MEDS: amLODIPine 5 MG TABLET PO SCH (07:41)
[2021-07-07] MEDS: FORMOTEROL IH SCH ×2 (07:47→20:46)
[2021-07-07] MEDS: GLYCOPYR IH SCH ×2 (07:47→20:46)
[2021-07-07] MEDS: BUDESONIDE IH SCH ×2 (07:47→20:46)
[2021-07-07] MEDS: polyethylene glycoL 3350 17 GM POWD.PACK PO SCH (11:57)
[2021-07-07] MEDS: lisinopriL 10 MG TABLET PO SCH (20:46)
[2021-07-07] MEDS: Melatonin 3 MG TABLET PO SCH (20:46)
[2021-07-07] MEDS: Cholecalciferol (D-3) 1,000 UNIT (25MCG) TABLET PO SCH (20:46)
[2021-07-08 06:11] LABS: Basophils % 0.3 %; Eosinophils # 0.2 K/mcL (0.0-0.6); Eosinophils % 2.4 %; Hematocrit 39.7 % (35.3-44.9); Hemoglobin 12.5 g/dL (11.5-15.4); Immature Granulocytes % 0.4 % (0-4); Lymphocytes # 2.1 K/mcL (0.6-4.6); Lymphocytes % 28.5 %; Mean Corpuscular HGB Conc 31.5 g/dL (31.6-35.5); Mean Corpuscular Hemoglobin 30.2 pg (28.0-33.3); Mean Corpuscular Volume 95.9 fL (83.0-100.0); Mean Platelet Volume 8.3 fL (9.4-12.4); Monocytes # 0.3 K/mcL (0.0-1.3); Monocytes % 4.7 %; Neutrophils # 4.6 K/mcL (1.6-8.9); Platelet Count 554 K/mcL (140-400); Red Blood Count 4.14 M/mcL (3.82-4.97); Segmented Neutrophils % 63.7 %; White Blood Count 7.2 K/mcL (4.3-11.1)
[2021-07-08 06:33] LABS: BUN/Creatinine Ratio 21 (6-26); Blood Urea Nitrogen 18 mg/dL (8-23); Calcium 9.2 mg/dL (8.6-10.3); Carbon Dioxide 30 mEq/L (23-29); Chloride 103 mEq/L (98-107); Glucose 90 mg/dL (70-105); Osmolality,Calculated 289 (280-300); Potassium 4.5 mEq/L (3.5-5.1); Sodium 139 mEq/L (136-145); eGFR For African Americans > 60 (> 60); eGFR For Non-African Americans > 60 (> 60)
[2021-07-08] MEDS: Sennosides 8.6 MG TABLET PO SCH ×2 (08:43→22:00)
[2021-07-08] MEDS: amLODIPine 5 MG TABLET PO SCH (08:43)
[2021-07-08] MEDS: FORMOTEROL IH SCH ×2 (12:30→22:00)
[2021-07-08] MEDS: GLYCOPYR IH SCH ×2 (12:30→22:00)
[2021-07-08] MEDS: BUDESONIDE IH SCH ×2 (12:30→22:00)
[2021-07-08] MEDS: polyethylene glycoL 3350 17 GM POWD.PACK PO SCH (15:30)
[2021-07-08] MEDS: Melatonin 3 MG TABLET PO SCH (22:00)
[2021-07-08] MEDS: lisinopriL 10 MG TABLET PO SCH (22:00)
[2021-07-08] MEDS: Cholecalciferol (D-3) 1,000 UNIT (25MCG) TABLET PO SCH (22:00)
[2021-07-09] MEDS: Sennosides 8.6 MG TABLET PO SCH (08:50)
[2021-07-09] MEDS: amLODIPine 5 MG TABLET PO SCH (08:50)
[2021-07-09] MEDS: FORMOTEROL IH SCH (08:52)
[2021-07-09] MEDS: BUDESONIDE IH SCH (08:52)
[2021-07-09] MEDS: GLYCOPYR IH SCH (08:52)
[2021-07-09] MEDS: polyethylene glycoL 3350 17 GM POWD.PACK PO SCH (14:04)
[2021-07-10] MEDS: amLODIPine 5 MG TABLET PO SCH (10:46)
[2021-07-10] MEDS: GLYCOPYR IH SCH ×3 (10:47→21:59)
[2021-07-10] MEDS: BUDESONIDE IH SCH ×3 (10:47→21:59)
[2021-07-10] MEDS: FORMOTEROL IH SCH ×3 (10:47→21:59)
[2021-07-10] MEDS: Sennosides 8.6 MG TABLET PO SCH ×3 (10:47→21:57)
[2021-07-10] MEDS: Melatonin 3 MG TABLET PO SCH ×2 (10:48→21:57)
[2021-07-10] MEDS: lisinopriL 10 MG TABLET PO SCH ×2 (10:49→21:57)
[2021-07-10] MEDS: Cholecalciferol (D-3) 1,000 UNIT (25MCG) TABLET PO SCH ×2 (10:49→21:57)
[2021-07-10] MEDS: polyethylene glycoL 3350 17 GM POWD.PACK PO SCH (16:28)
[2021-07-11 08:17] VITALS: RESP 16
[2021-07-11] MEDS: amLODIPine 5 MG TABLET PO SCH (09:17)
[2021-07-11] MEDS: BUDESONIDE IH SCH ×2 (09:18→19:40)
[2021-07-11] MEDS: GLYCOPYR IH SCH ×2 (09:18→19:40)
[2021-07-11] MEDS: Sennosides 8.6 MG TABLET PO SCH ×2 (09:18→19:42)
[2021-07-11] MEDS: FORMOTEROL IH SCH ×2 (09:18→19:40)
[2021-07-11] MEDS: polyethylene glycoL 3350 17 GM POWD.PACK PO SCH (09:18)
[2021-07-11] MEDS: lisinopriL 10 MG TABLET PO SCH (19:39)
[2021-07-11] MEDS: Cholecalciferol (D-3) 1,000 UNIT (25MCG) TABLET PO SCH (19:39)
[2021-07-11] MEDS: Melatonin 3 MG TABLET PO SCH (19:40)
[2021-07-12 07:52] VITALS: BP 122/69; PULSE 88; TEMP 98.5; O2SAT 97
[2021-07-12] MEDS: amLODIPine 5 MG TABLET PO SCH (07:59)
[2021-07-12] MEDS: GLYCOPYR IH SCH (08:00)
[2021-07-12] MEDS: FORMOTEROL IH SCH (08:00)
[2021-07-12] MEDS: BUDESONIDE IH SCH (08:00)
[2021-07-12] MEDS: Sennosides 8.6 MG TABLET PO SCH (16:06)
[2021-07-12] MEDS: polyethylene glycoL 3350 17 GM POWD.PACK PO SCH (16:06)
== END 2021-07-12 17:24 | disposition home health service (06) | DRG 56 ==
LOC: INPGRE 20:28
PROVIDERS: ADMIT Family Medicine; ATTEND Family Medicine

== ENCOUNTER 2022-03-05 14:34 | Inpatient (IN) ==
[2022-03-05] MEDS ORDERED: Ipratropium/Albuterol Neb 3 ML IH PRN (17:13)
[2022-03-05] MEDS: Melatonin 3 MG TABLET PO SCH (21:06)
[2022-03-05] MEDS: amLODIPine 5 MG TABLET PO SCH (21:07)
[2022-03-05] MEDS: Sennosides/Docusate Sodium TABLET PO SCH (21:07)
[2022-03-05] MEDS: Cholecalciferol (D-3) 1,000 UNIT (25MCG) TABLET PO SCH (21:07)
[2022-03-05] MEDS: Azelastine 0.1% Nasal Spray 30 ML BOTTLE NS SCH (21:08)
[2022-03-05] MEDS: Acetylcysteine [N-Acetyl-L-Cysteine] 600 MG Capsule PO SCH (21:08)
[2022-03-05] MEDS: Budesonide/Glycopyr/Formoterol [Breztri Aerosphere] IH SCH (21:08)
[2022-03-05] MEDS: *HR* OxyCODONE Immed Rel 5 MG TABLET PO PRN (21:13)
[2022-03-06 04:34] LABS: Basophils # 0.1 K/mcL (0.0-0.2); Basophils % 0.5 %; Eosinophils # 0.2 K/mcL (0.0-0.6); Eosinophils % 2.4 %; Hematocrit 37.5 % (35.3-44.9); Lymphocytes # 2.8 K/mcL (0.6-4.6); Lymphocytes % 29.8 %; Mean Corpuscular Hemoglobin 29.1 pg (28.0-33.3); Mean Corpuscular Volume 90.8 fL (83.0-100.0); Mean Platelet Volume 8.6 fL (9.4-12.4); Monocytes # 0.7 K/mcL (0.0-1.3); Monocytes % 7.3 %; Neutrophils # 5.5 K/mcL (1.6-8.9); Platelet Count 528 K/mcL (140-400); Red Blood Count 4.13 M/mcL (3.82-4.97); Red Cell Distribution Width 15.6 % (11.5-14.5); White Blood Count 9.4 K/mcL (4.3-11.1)
[2022-03-06 04:49] LABS: BUN/Creatinine Ratio 23 (6-26); Blood Urea Nitrogen 23 mg/dL (8-23); Calcium 9.9 mg/dL (8.6-10.3); Carbon Dioxide 28 mEq/L (23-29); Chloride 100 mEq/L (98-107); Glucose 111 mg/dL (70-105); Osmolality,Calculated 286 (280-300); Potassium 4.3 mEq/L (3.5-5.1); Sodium 136 mEq/L (136-145); eGFR For African Americans > 60 (> 60); eGFR For Non-African Americans 55 (> 60)
[2022-03-06] MEDS: polyethylene glycoL 3350 17 GM POWD.PACK PO SCH (09:19)
[2022-03-06] MEDS: Sennosides/Docusate Sodium TABLET PO SCH ×2 (09:19→21:09)
[2022-03-06] MEDS: amLODIPine 5 MG TABLET PO SCH ×2 (09:19→21:11)
[2022-03-06] MEDS: *HR* OxyCODONE Immed Rel 5 MG TABLET PO PRN ×2 (09:19→21:12)
[2022-03-06] MEDS: Loratadine 10 MG TABLET PO SCH (09:19)
[2022-03-06] MEDS: Budesonide/Glycopyr/Formoterol [Breztri Aerosphere] IH SCH ×2 (09:23→21:14)
[2022-03-06] MEDS: Acetylcysteine [N-Acetyl-L-Cysteine] 600 MG Capsule PO SCH ×2 (09:23→21:14)
[2022-03-06] MEDS: Azelastine 0.1% Nasal Spray 30 ML BOTTLE NS SCH ×2 (09:24→21:14)
[2022-03-06] MEDS: Melatonin 3 MG TABLET PO SCH (21:07)
[2022-03-06] MEDS: Cholecalciferol (D-3) 1,000 UNIT (25MCG) TABLET PO SCH (21:11)
[2022-03-07] MEDS: Acetaminophen 325 MG TABLET PO PRN ×2 (04:46→17:13)
[2022-03-07] MEDS: Loratadine 10 MG TABLET PO SCH (08:20)
[2022-03-07] MEDS: amLODIPine 5 MG TABLET PO SCH ×2 (08:20→19:51)
[2022-03-07] MEDS: Azelastine 0.1% Nasal Spray 30 ML BOTTLE NS SCH ×2 (08:20→19:52)
[2022-03-07] MEDS: polyethylene glycoL 3350 17 GM POWD.PACK PO SCH (08:20)
[2022-03-07] MEDS: Budesonide/Glycopyr/Formoterol [Breztri Aerosphere] IH SCH ×2 (08:21→19:55)
[2022-03-07] MEDS: Acetylcysteine [N-Acetyl-L-Cysteine] 600 MG Capsule PO SCH ×2 (08:21→19:54)
[2022-03-07] MEDS: Sennosides/Docusate Sodium TABLET PO SCH ×2 (08:21→19:51)
[2022-03-07] MEDS: *HR* OxyCODONE Immed Rel 5 MG TABLET PO PRN (18:42)
[2022-03-07] MEDS: Cholecalciferol (D-3) 1,000 UNIT (25MCG) TABLET PO SCH (19:51)
[2022-03-07] MEDS: Melatonin 3 MG TABLET PO SCH (19:51)
[2022-03-08 04:47] LABS: Basophils % 0.5 %; Eosinophils # 0.3 K/mcL (0.0-0.6); Eosinophils % 3.6 %; Hematocrit 35.6 % (35.3-44.9); Hemoglobin 11.2 g/dL (11.5-15.4); Lymphocytes # 2.4 K/mcL (0.6-4.6); Lymphocytes % 27.9 %; Mean Corpuscular HGB Conc 31.5 g/dL (31.6-35.5); Mean Corpuscular Hemoglobin 29.2 pg (28.0-33.3); Mean Corpuscular Volume 92.7 fL (83.0-100.0); Mean Platelet Volume 8.6 fL (9.4-12.4); Monocytes # 0.6 K/mcL (0.0-1.3); Monocytes % 7.1 %; Platelet Count 567 K/mcL (140-400); Red Blood Count 3.84 M/mcL (3.82-4.97); Red Cell Distribution Width 15.4 % (11.5-14.5); Segmented Neutrophils % 57.9 %; White Blood Count 8.6 K/mcL (4.3-11.1)
[2022-03-08 05:04] LABS: BUN/Creatinine Ratio 24 (6-26); Blood Urea Nitrogen 21 mg/dL (8-23); Calcium 9.3 mg/dL (8.6-10.3); Carbon Dioxide 29 mEq/L (23-29); Chloride 103 mEq/L (98-107); Glucose 101 mg/dL (70-105); Osmolality,Calculated 291 (280-300); Potassium 4.1 mEq/L (3.5-5.1); Sodium 139 mEq/L (136-145); eGFR For African Americans > 60 (> 60); eGFR For Non-African Americans > 60 (> 60)
[2022-03-08] MEDS: Sennosides/Docusate Sodium TABLET PO SCH ×2 (08:52→20:43)
[2022-03-08] MEDS: *HR* OxyCODONE Immed Rel 5 MG TABLET PO PRN (08:53)
[2022-03-08] MEDS: polyethylene glycoL 3350 17 GM POWD.PACK PO SCH (08:53)
[2022-03-08] MEDS: amLODIPine 5 MG TABLET PO SCH ×2 (08:53→20:43)
[2022-03-08] MEDS: Loratadine 10 MG TABLET PO SCH (08:53)
[2022-03-08] MEDS: Acetylcysteine [N-Acetyl-L-Cysteine] 600 MG Capsule PO SCH ×2 (08:53→20:44)
[2022-03-08] MEDS: Budesonide/Glycopyr/Formoterol [Breztri Aerosphere] IH SCH ×3 (08:56→20:45)
[2022-03-08] MEDS: Azelastine 0.1% Nasal Spray 30 ML BOTTLE NS SCH ×2 (08:56→20:43)
[2022-03-08] MEDS: Cholecalciferol (D-3) 1,000 UNIT (25MCG) TABLET PO SCH (20:43)
[2022-03-08] MEDS: Melatonin 3 MG TABLET PO SCH (20:44)
[2022-03-09] MEDS: Azelastine 0.1% Nasal Spray 30 ML BOTTLE NS SCH ×2 (10:05→20:17)
[2022-03-09] MEDS: amLODIPine 5 MG TABLET PO SCH ×2 (10:05→20:16)
[2022-03-09] MEDS: Loratadine 10 MG TABLET PO SCH (10:05)
[2022-03-09] MEDS: Acetaminophen 325 MG TABLET PO PRN ×2 (10:05→20:17)
[2022-03-09] MEDS: Budesonide/Glycopyr/Formoterol [Breztri Aerosphere] IH SCH ×2 (10:06→20:17)
[2022-03-09] MEDS: polyethylene glycoL 3350 17 GM POWD.PACK PO SCH (10:06)
[2022-03-09] MEDS: Acetylcysteine [N-Acetyl-L-Cysteine] 600 MG Capsule PO SCH ×2 (10:06→20:17)
[2022-03-09] MEDS: Sennosides/Docusate Sodium TABLET PO SCH ×2 (10:06→20:17)
[2022-03-09] MEDS: Melatonin 3 MG TABLET PO SCH (20:16)
[2022-03-09] MEDS: Cholecalciferol (D-3) 1,000 UNIT (25MCG) TABLET PO SCH (20:18)
[2022-03-10] MEDS: Acetylcysteine [N-Acetyl-L-Cysteine] 600 MG Capsule PO SCH (09:30)
[2022-03-10] MEDS: Azelastine 0.1% Nasal Spray 30 ML BOTTLE NS SCH ×2 (09:30→19:56)
[2022-03-10] MEDS: polyethylene glycoL 3350 17 GM POWD.PACK PO SCH (09:30)
[2022-03-10] MEDS: Budesonide/Glycopyr/Formoterol [Breztri Aerosphere] IH SCH ×2 (09:31→19:57)
[2022-03-10] MEDS: amLODIPine 5 MG TABLET PO SCH ×2 (09:31→19:54)
[2022-03-10] MEDS: Sennosides/Docusate Sodium TABLET PO SCH ×2 (09:32→19:54)
[2022-03-10] MEDS: Loratadine 10 MG TABLET PO SCH (09:32)
[2022-03-10] MEDS: Acetaminophen 325 MG TABLET PO PRN ×2 (09:33→20:02)
[2022-03-10] MEDS: Melatonin 3 MG TABLET PO SCH (19:52)
[2022-03-10] MEDS: Cholecalciferol (D-3) 1,000 UNIT (25MCG) TABLET PO SCH (19:55)
[2022-03-10] MEDS: *HR* Acetylcysteine 20% 600 MG/3 ML ORAL SYRINGE PO SCH (20:09)
[2022-03-11] MEDS: Loratadine 10 MG TABLET PO SCH (07:33)
[2022-03-11] MEDS: Budesonide/Glycopyr/Formoterol [Breztri Aerosphere] IH SCH ×3 (07:34→19:58)
[2022-03-11] MEDS: Azelastine 0.1% Nasal Spray 30 ML BOTTLE NS SCH ×2 (07:34→19:59)
[2022-03-11] MEDS: polyethylene glycoL 3350 17 GM POWD.PACK PO SCH ×2 (07:34→20:37)
[2022-03-11] MEDS: *HR* Acetylcysteine 20% 600 MG/3 ML ORAL SYRINGE PO SCH ×2 (07:34→19:58)
[2022-03-11] MEDS: amLODIPine 5 MG TABLET PO SCH ×2 (07:34→19:59)
[2022-03-11] MEDS: Sennosides/Docusate Sodium TABLET PO SCH (07:34)
[2022-03-11] MEDS: Acetaminophen 325 MG TABLET PO PRN (07:37)
[2022-03-11] MEDS: *HR* OxyCODONE Immed Rel 5 MG TABLET PO PRN (14:31)
[2022-03-11] MEDS: Cholecalciferol (D-3) 1,000 UNIT (25MCG) TABLET PO SCH (19:59)
[2022-03-11] MEDS: Melatonin 3 MG TABLET PO SCH (20:00)
[2022-03-12] MEDS: Acetaminophen 325 MG TABLET PO PRN ×2 (07:54→21:39)
[2022-03-12] MEDS: *HR* Acetylcysteine 20% 600 MG/3 ML ORAL SYRINGE PO SCH ×2 (07:54→21:40)
[2022-03-12] MEDS: amLODIPine 5 MG TABLET PO SCH ×2 (07:55→21:38)
[2022-03-12] MEDS: Azelastine 0.1% Nasal Spray 30 ML BOTTLE NS SCH ×2 (07:55→21:40)
[2022-03-12] MEDS: Loratadine 10 MG TABLET PO SCH (07:55)
[2022-03-12] MEDS: Budesonide/Glycopyr/Formoterol [Breztri Aerosphere] IH SCH ×2 (07:56→21:41)
[2022-03-12] MEDS: polyethylene glycoL 3350 17 GM POWD.PACK PO SCH (07:56)
[2022-03-12] MEDS: Cholecalciferol (D-3) 1,000 UNIT (25MCG) TABLET PO SCH (21:39)
[2022-03-12] MEDS: Melatonin 3 MG TABLET PO SCH (21:39)
[2022-03-13] MEDS: Loratadine 10 MG TABLET PO SCH (07:53)
[2022-03-13] MEDS: *HR* Acetylcysteine 20% 600 MG/3 ML ORAL SYRINGE PO SCH ×2 (07:53→21:03)
[2022-03-13] MEDS: Acetaminophen 325 MG TABLET PO PRN ×2 (07:53→21:04)
[2022-03-13] MEDS: amLODIPine 5 MG TABLET PO SCH ×2 (07:54→21:02)
[2022-03-13] MEDS: polyethylene glycoL 3350 17 GM POWD.PACK PO SCH (07:54)
[2022-03-13] MEDS: Azelastine 0.1% Nasal Spray 30 ML BOTTLE NS SCH ×2 (07:54→21:03)
[2022-03-13] MEDS: Budesonide/Glycopyr/Formoterol [Breztri Aerosphere] IH SCH ×2 (07:54→21:05)
[2022-03-13] MEDS: Cholecalciferol (D-3) 1,000 UNIT (25MCG) TABLET PO SCH (21:02)
[2022-03-13] MEDS: Melatonin 3 MG TABLET PO SCH (21:03)
[2022-03-14] MEDS: Loratadine 10 MG TABLET PO SCH (08:23)
[2022-03-14] MEDS: amLODIPine 5 MG TABLET PO SCH ×2 (08:23→21:24)
[2022-03-14] MEDS: Acetaminophen 325 MG TABLET PO PRN ×2 (08:23→21:23)
[2022-03-14] MEDS: *HR* Acetylcysteine 20% 600 MG/3 ML ORAL SYRINGE PO SCH ×2 (08:23→21:25)
[2022-03-14] MEDS: Azelastine 0.1% Nasal Spray 30 ML BOTTLE NS SCH ×2 (08:24→21:25)
[2022-03-14] MEDS: Budesonide/Glycopyr/Formoterol [Breztri Aerosphere] IH SCH ×2 (08:26→21:24)
[2022-03-14] MEDS: polyethylene glycoL 3350 17 GM POWD.PACK PO SCH (08:26)
[2022-03-14] MEDS: Melatonin 3 MG TABLET PO SCH (21:23)
[2022-03-14] MEDS: Cholecalciferol (D-3) 1,000 UNIT (25MCG) TABLET PO SCH (21:24)
[2022-03-15 05:02] LABS: Basophils % 0.4 %; Eosinophils # 0.2 K/mcL (0.0-0.6); Eosinophils % 2.4 %; Hematocrit 37.1 % (35.3-44.9); Hemoglobin 11.8 g/dL (11.5-15.4); Immature Granulocytes % 0.8 % (0-4); Lymphocytes # 2.2 K/mcL (0.6-4.6); Lymphocytes % 29.2 %; Mean Corpuscular HGB Conc 31.8 g/dL (31.6-35.5); Mean Corpuscular Hemoglobin 29.5 pg (28.0-33.3); Mean Corpuscular Volume 92.8 fL (83.0-100.0); Mean Platelet Volume 8.5 fL (9.4-12.4); Monocytes # 0.5 K/mcL (0.0-1.3); Monocytes % 6.6 %; Neutrophils # 4.6 K/mcL (1.6-8.9); Platelet Count 626 K/mcL (140-400); Red Cell Distribution Width 15.7 % (11.5-14.5); Segmented Neutrophils % 60.6 %; White Blood Count 7.5 K/mcL (4.3-11.1)
[2022-03-15 05:16] LABS: BUN/Creatinine Ratio 30 (6-26); Blood Urea Nitrogen 29 mg/dL (8-23); Calcium 9.5 mg/dL (8.6-10.3); Carbon Dioxide 29 mEq/L (23-29); Chloride 105 mEq/L (98-107); Glucose 106 mg/dL (70-105); Osmolality,Calculated 298 (280-300); Potassium 4.3 mEq/L (3.5-5.1); Sodium 141 mEq/L (136-145); eGFR For African Americans > 60 (> 60); eGFR For Non-African Americans 57 (> 60)
[2022-03-15] MEDS: Azelastine 0.1% Nasal Spray 30 ML BOTTLE NS SCH ×2 (08:42→19:42)
[2022-03-15] MEDS: amLODIPine 5 MG TABLET PO SCH ×2 (08:42→19:43)
[2022-03-15] MEDS: Budesonide/Glycopyr/Formoterol [Breztri Aerosphere] IH SCH ×2 (08:42→19:43)
[2022-03-15] MEDS: Loratadine 10 MG TABLET PO SCH (08:42)
[2022-03-15] MEDS: polyethylene glycoL 3350 17 GM POWD.PACK PO SCH (08:42)
[2022-03-15] MEDS: *HR* Acetylcysteine 20% 600 MG/3 ML ORAL SYRINGE PO SCH ×2 (08:44→19:25)
[2022-03-15] MEDS: Melatonin 3 MG TABLET PO SCH (19:43)
[2022-03-15] MEDS: Cholecalciferol (D-3) 1,000 UNIT (25MCG) TABLET PO SCH (19:43)
[2022-03-15] MEDS: Acetaminophen 325 MG TABLET PO PRN (19:57)
[2022-03-16 06:41] VITALS: BP 129/68; PULSE 84; RESP 17; TEMP 98.2; O2SAT 95
[2022-03-16] MEDS: *HR* Acetylcysteine 20% 600 MG/3 ML ORAL SYRINGE PO SCH (07:58)
[2022-03-16] MEDS: Acetaminophen 325 MG TABLET PO PRN (07:59)
[2022-03-16] MEDS: Loratadine 10 MG TABLET PO SCH (08:00)
[2022-03-16] MEDS: polyethylene glycoL 3350 17 GM POWD.PACK PO SCH (08:00)
[2022-03-16] MEDS: Budesonide/Glycopyr/Formoterol [Breztri Aerosphere] IH SCH (08:00)
[2022-03-16] MEDS: Azelastine 0.1% Nasal Spray 30 ML BOTTLE NS SCH (08:00)
[2022-03-16] MEDS: amLODIPine 5 MG TABLET PO SCH (08:00)
== END 2022-03-16 15:45 | DRG 560 ==
LOC: INPGRE 15:38
PROVIDERS: ADMIT Family Medicine; ATTEND Family Medicine